=== PATIENT | male | born 1955 | race Caucasian/White ===

== ENCOUNTER 2020-01-31 09:18 | Observation (INO) ==
--- NOTE | 2020-01-05 12:55 | PAT Medication Instructions ---
Medication Instructions Date of Service January 05, 2020 Home Medications aspirin Aspirin Low Dose 81 mg PO QPM coenzyme Q10 [CoQ-10] 100 mg PO QAM ergocalciferol (vitamin D2) Vitamin D2 1,250 mcg PO WK ibandronate 150 mg PO MONTHLY lansoprazole 30 mg PO QAM lisinopril 10 mg PO QPM multivitamin 1 tab PO QAM pravastatin 40 mg PO HS sildenafil 100 mg PO DAILY PRN Continue as directed ibandronate 150 mg PO MONTHLY STOP taking 2 weeks before surgery (or as soon as possible if surgery is within 2 weeks) coenzyme Q10 [CoQ-10] 100 mg PO QAM DO NOT take the morning of surgery ergocalciferol (vitamin D2) Vitamin D2 1,250 mcg PO WK multivitamin 1 tab PO QAM sildenafil 100 mg PO DAILY PRN Take morning of surgery With a small sip of water, OTHERWISE NOTHING TO EAT OR DRINK AFTER MIDNIGHT: lansoprazole 30 mg PO QAM Take evening before surgery aspirin Aspirin Low Dose 81 mg PO QPM lisinopril 10 mg PO QPM pravastatin 40 mg PO HS sildenafil 100 mg PO DAILY PRN (if needed) Other Notes If you have any questions please call us at [phone] or [phone] or [phone] or [phone]
--- NOTE | 2020-01-08 08:14 | History & Physical Report ---
Date of Service January 08, 2020 date of surgery: 01-31-20 Procedure: Right Total Knee Arthroplasty Assessment & Plan (1) Arthritis of right knee: Risks and benefits of procedure discussed in detail today, patient would like to proceed with a Right total knee replacement at [facility] as scheduled. will obtain medical clearance from Dr Angelo prior to surgery as well as obtain PATs at [facility]. Will place on ASA 81mg po bid x 1 month post op, f/u 2 weeks post op for routine post-operative care and x-ray, sooner if having any problems. will make arrangements for HHPT at the time of discharge. At this point in time, has failed conservative measures and would like to proceed with surgical intervention. The risks and benefits have been discussed including, but not limited to, risk of infection, nerve injury, stiffness, loss of motion, failure to improve, etc. Reasonable outcomes and options of treatment were discussed. An explanation of appropriate alternatives to the procedure that may be advantageous were discussed and their risks and benefits, as well as the risks and benefits of not proceeding with treatment. I offered to answer any additional inquiries concerning the treatment involved. All the patient's questions were answered. The patient is agreeable, understanding of the treatment plan and alternatives, and wishes to proceed with the treatment plan. History of Present Illness Chief Complaint: Right knee pain Primary Care Provider: Parveen Angelo MD Mr Mcintyre is a 64 year old male who complains of Right knee pain, presents for preop prior to a right total knee replacement at [facility]. He presents with pain, decreased rom and stiffness in his right knee. He states that the symptoms have been chronic non-traumatic and his symptoms are constant with intermittent worsening. Currently the patient states that the symptoms are moderate. The pain is described as aching and throbbing. He rates his current pain as 5/10. The symptoms are aggravated by daily activities. He had previous cortisone injections without relief, has tried Tylenol, IBU and Aleve without relief. Allergies Allergy/AdvReac Type Severity Reaction Status Date / Time No Known Allergies Allergy Verified 01/01/20 09:48 Home Medications Home Medications Medication Instructions Recorded Confirmed Type aspirin [Aspirin Low Dose] 81 mg PO QPM 08/15/19 01/01/20 History coenzyme Q10 [CoQ-10] 100 mg PO QAM 08/15/19 01/01/20 History ergocalciferol (vitamin D2) 1,250 mcg PO WK 08/15/19 01/01/20 History [Vitamin D2] ibandronate 150 mg PO MONTHLY 08/15/19 01/01/20 History lansoprazole 30 mg PO QAM 08/15/19 01/01/20 History lisinopril 10 mg PO QPM 08/15/19 01/01/20 History multivitamin 1 tab PO QAM 08/15/19 01/01/20 History pravastatin 40 mg PO HS 08/15/19 01/01/20 History sildenafil 100 mg PO DAILY PRN 08/15/19 01/01/20 History Past Med/Surg History Medical History GERD (gastroesophageal reflux disease) Hx of migraine with aura stress related/no recent issues Hyperlipidemia Hypertension Osteoarthritis Osteoporosis Surgical History History of repair of anterior cruciate ligament of left knee Hx of arthroscopic knee surgery LEFT Hx of colonoscopy Hx of repair of right rotator cuff Hx of tonsillectomy Family History Father Family history of esophageal cancer Social History Smoking Status: Former smoker Smoking End Date: TEEN; Second Hand Exposure: Yes (MOM SMOKED); Do You Dip or Chew Tobacco: No; Tobacco Cessation Education Requested by Patient: No Hx Alcohol Use: No Hx Substance Use: No Preferred Language: Slovak Communication Ability: Effective Metal Flow Coordinator Required: No Beliefs That Will Affect Care: None Current Living Situation: Spouse Other Information That Helps Us Care for You: No Feels Safe at Home: Yes Safety Concerns: Feels Safe At This Time Review of Systems Review of Systems: All systems reviewed & are unremarkable except as noted in HPI & below Constitutional: no fever, no chills and no sweats Respiratory: no cough and no dyspnea Cardiovascular: no chest pain, no dyspnea and no orthopnea Gastrointestinal: no abdominal pain, no nausea and no vomiting Musculoskeletal: as per Subjective / HPI Physical Exam Physical Exam: Ht: 5ft 11in Wt: 95.25kg BP: 130/82 Constitutional: WD/WN, vitals as above no acute distress Respiratory: normal respiratory effort, lungs clear to auscultation no respiratory distress, no labored breathing and does not use accessory muscles Cardiovascular: RRR, no murmur, no edema Gastrointestinal (Abdomen): normal bowel sounds, soft, nontender, no hepatosplenomegaly Musculoskeletal: Knee: + knee abnormal to inspection (Right knee- ), + effusion (+1 effusion), + limited ROM of knee (ROM 0/3/110), + knee ROM with crepitation, + joint line tenderness (medial joint line) and + Melissa's sign positive; no deformity, no skin erythema, no ecchymosis, no valgus laxity, no varus laxity, anterior drawer test negative, Kiera's sign negative and pivot shift test negative Results & Data Results & Data ([facility]) Diagnostic Findings right knee xray from 07/31/19 showing complete loss joint space medial compartment with overall varus alignment, there is also narrowing of the lateral compartment and patellofemoral joint. there is osteophyte formation, subchondral sclerosis noted, no loose bodies, no acute bony pathology. overall impression tricompartmental degenerative changes to the right knee.
--- NOTE | 2020-01-08 12:36 | Anesthesiology Consultation ---
Date of Service January 08, 2020 Assessment & Plan (1) Encounter for pre-operative examination: *Per PAT assessment on 01/07: Travel screen- visits son's home in [facility] on the weekends. Uses PPE in public. Advised patient to avoid travel prio r to surgery- patient voiced understanding. No known COVID-19 positive contacts. No current COVID-19 related symptoms. Surgeon arranging preop COVID testing. Awaiting results. Chart Review Chart Review: Acceptable Risk for Surgery (pending surgeon-ordered PCP clearance on 01/16 (Dr. Parveen Angelo)) and Patient seen in Pre Admission Testing Teaching & Discussion Pre-Anesthesia Teaching/Discussion Notes: Instructed NPO after midnight before surgery,except medications with 15 cc of water. Medication instructions provided according to the PAT guidelines. History Surgery Operation Date: 01/31/20 07:00 Proposed Procedures p Right Total Knee Arthroplasty - Olivier Louis DO Height/Weight Height: 5 ft 11 in Weight: 98.9 kg Allergies Allergy/AdvReac Type Severity Reaction Status Date / Time No Known Allergies Allergy Verified 01/01/20 09:48 Medications Home Medications Medication Instructions Recorded Confirmed Last Taken aspirin [Aspirin Low Dose] 81 mg PO QPM 08/15/19 01/01/20 Unknown coenzyme Q10 [CoQ-10] 100 mg PO QAM 08/15/19 01/01/20 Unknown ergocalciferol (vitamin D2) 1,250 mcg PO WK 08/15/19 01/01/20 Unknown [Vitamin D2] ibandronate 150 mg PO MONTHLY 08/15/19 01/01/20 Unknown lansoprazole 30 mg PO QAM 08/15/19 01/01/20 Unknown lisinopril 10 mg PO QPM 08/15/19 01/01/20 Unknown multivitamin 1 tab PO QAM 08/15/19 01/01/20 Unknown pravastatin 40 mg PO HS 08/15/19 01/01/20 Unknown sildenafil 100 mg PO DAILY PRN 08/15/19 01/01/20 Unknown Past Medical History Medical History GERD (gastroesophageal reflux disease) controlled Hx of migraine with aura stress related/no recent issues Hyperlipidemia Hypertension Osteoarthritis Osteoporosis Exercise / Class Metabolic Activity II 4-5 Yardwork/Stairs/Walk up hill (one flight of stairs (no chest pain, no sob)) Past Family History Family History Father Family history of esophageal cancer Past Surgical History Surgical History History of repair of anterior cruciate ligament of left knee Hx of arthroscopic knee surgery LEFT Hx of colonoscopy Hx of repair of right rotator cuff Hx of tonsillectomy Past Anesthesia History No Hx of Anesthesia Complications and No Family Hx of Anesthesia Complications History of PONV No Hx of PONV and No Hx of Motion Sickness Social History Smoking Status: Former smoker Do You Dip or Chew Tobacco: No Smoking End Date: QUIT TEEN Hx Alcohol Use: No alcohol intake frequency: holidays/special occasions only Hx Substance Use: No substance use type: does not use Review of Systems Controlled reflux. Patient denies chest pain, shortness of breath, dyspnea on exertion, cough, wheezing, palpitations. Physical Exam Vital Signs VITALS BP 123/72 P 69 TEM 97.9P SP02 95%RA RESP 18 PHYSICAL Full neck and c-spine range of motion. Full TMJ range of motion. TMD 3 finger breaths Mallampati Score 3 Dentition: intact, + crowns (molars), + implant (upper front right side), right upper molar- hx of abscess s/p drainage/treatment, dentist will re-evaluate prior to orthopedic surgery to determine if anything further needed. Patient aware that if further dental work is needed for patient to contact surgeon to make them aware Lungs: clear throughout to auscultation Cardiac: regular rate and rhythm, no murmurs noted Spine: normal Carotid arteries: negative bruit Extremities: no edema Testing Laboratory Results 01/08/20 13:17 01/08/20 13:17 PT 10.3 Seconds (9.0-12.0) 01/08/20 13:17 INR 1.0 (0.9-1.1) 01/08/20 13:17 APTT 26.1 Seconds (21.0-31.0) 01/08/20 13:17 Hemoglobin A1c 5.9 % (4.5-5.6) H 01/08/20 13:17 Urine Color Yellow 01/08/20 13:17 Urine Appearance Clear (Clear) 01/08/20 13:17 Urine pH 5.0 (4.5-7.5) 01/08/20 13:17 Ur Specific [place] 1.027 (1.000-1.030) 01/08/20 13:17 Urine Protein Negative (Negative) 01/08/20 13:17 Urine Glucose (UA) Negative (Negative) 01/08/20 13:17 Urine Ketones Negative (Negative) 01/08/20 13:17 Urine Nitrite Negative (Negative) 01/08/20 13:17 Ur Leukocyte Esterase Negative (Negative) 01/08/20 13:17 Blood Type A Positive 01/08/20 13:17 Antibody Screen NEGATIVE 01/08/20 13:17 Electrocardiogram Date: 01/08/20 Findings: + NSR @ (61) Chest X-Ray Date: 01/08/20 Findings: + NAD
--- NOTE | 2020-01-08 14:02 | XRay Report ---
XR chest Pre-admission PA/Lat CLINICAL HISTORY: pat preoperative evaluation COMPARISON STUDY: No previous studies for comparison. FINDINGS: The bones soft tissues and hemidiaphragms are normal. The cardiomediastinal silhouette is n ormal. The lungs are clear. The pulmonary vasculature is normal. IMPRESSION: Negative chest. ACT 112: Negative or not required by law. The above report was generated using voice recognition software. It may contain grammatical, syntax or spelling errors. Electronically signed by: Milton Stein M.D. 01/08/2020 2:00 PM
[2020-01-08 14:40] LABS: Basophils # (auto) 0.03 K/uL (0-0.2); Basophils % (auto) 0.5 %; Eosinophils # (auto) 0.32 K/uL (0-0.5); Hematocrit (blood only) 42.3 % (42-52); Hemoglobin 14.2 g/dL (14.0-18.0); Immature Granulocytes # (auto) 0.01 K/uL (0.00-0.02); Immature Granulocytes % (auto) 0.2 %; Lymphocytes # (auto) 2.46 K/uL (1.2-3.4); Lymphocytes % (auto) 38.6 %; Mean Corpuscular Hgb Conc 33.6 g/dL (32-36); Mean Corpuscular Volume 92.4 fL (80-100); Mean Platelet Volume 10.2 fL (7.4-10.4); Monocytes # (auto) 0.37 K/uL (0.11-0.59); Monocytes % (auto) 5.8 %; Neutrophils # (auto) 3.18 K/uL (1.4-6.5); Neutrophils % (auto) 49.9 %; Platelet Count 219 K/uL (130-400); RDW Coefficient of Variation 13.7 % (11.5-14.5); RDW Standard Deviation 46.2 fL (36.4-46.3); Red Blood Count 4.58 M/uL (4.7-6.1); White Blood Count 6.37 K/uL (4.8-10.8)
[2020-01-08 14:45] LABS: Appearance Urine Clear (Clear); Bilirubin Urine Negative (Negative); Blood Urine Negative (Negative); Color Urine Yellow; Glucose Urine UA Negative (Negative); Ketones Urine Negative (Negative); Leukocyte Esterase Urine Negative (Negative); Nitrite Urine Negative (Negative); Protein Urine Negative (Negative); Specific Gravity Urine 1.027 (1.000-1.030); Urobilinogen Urine Negative (Negative)
[2020-01-08 14:50] LABS: Partial Thromboplastin Ratio 0.9; Partial Thromboplastin Time 26.1 Seconds (21.0-31.0); Prothrombin Time 10.3 Seconds (9.0-12.0)
[2020-01-08 15:04] LABS: Albumin Level 3.7 gm/dl (3.4-5.0); BUN Creatinine Ratio 16.7 (10-20); Calcium 9.1 mg/dl (8.5-10.1); Creatinine Clr Calc Pharmacy 77.5 ml/min; Est GFR (African American) 76.4; Potassium 3.7 mmol/L (3.5-5.1)
[2020-01-09 05:39] LABS: Estimated Average Glucose 123 mg/dl; Hemoglobin A1C 5.9 % (4.5-5.6)
--- NOTE | 2020-01-09 06:02 | Electrocardiogram Report ---
Test Reason : Blood Pressure : / mmHG Vent. Rate : 061 BPM Atrial Rate : 061 BPM P-R Int : 138 ms QRS Dur : 092 ms QT Int : 398 ms P-R-T Axes : 053 060 041 degrees QTc Int : 400 ms Normal sinus rhythm Normal ECG No previous ECGs available Confirmed by Milton Webb ([id number]) on 01/09/2020 6:02:20 AM Referred By: Olivier Louis Confirmed By:Milton Webb
[~2020-01-31 09:18] MED LIST: ACETAMINOPHEN 500 MG TAB PO SCH; CEFAZOLIN 2000MG 2,000 MG/15 ML SYR IV SCH; CeleBREX 200 MG CAP PO SCH; FAMOTIDINE 20 MG TAB PO SCH; GABAPENTIN 600 MG DOSE PO SCH; LR 500ML BOLUS, THEN 15ML/HR IV SCH; METOCLOPRAMIDE HCL 10 MG TABLET PO SCH; ROPIVACAINE 0.5% HCL/PF 150 MG, BUPIVACAINE 0.5% MPF 30 ML, EPINEPHrine 30MG/30ML (OR U... INSTIL SCH; TRANEXAMIC ACID 1,000 MG **IV Intra-op IV SCH; TRANEXAMIC ACID 1,000 MG **IV Pre-op IV SCH; dexAMETHasone 4 MG TAB PO SCH
[2020-01-31] MEDS ORDERED: BUPIVACAINE 0.25% 30 ML VIAL ONE (09:24)
[2020-01-31] MEDS ORDERED: BUPIVACAINE 0.5 % 5 MG/1 ML PF 10ML VIAL ONE (09:24)
[2020-01-31] MEDS ORDERED: LIDOCAINE HCL 2% 2 ML VIAL/AMP(20MG/ML) INFIL ONE (09:30)
[2020-01-31] MEDS ORDERED: ePHEDrine sulfate 50 MG/ML SYR ONE (09:30)
[2020-01-31] MEDS ORDERED: PROPOFOL IV EMULSION 10 MG/ML 20 ML VIAL IV ONE ×2 (09:30→11:47)
[2020-01-31] MEDS ORDERED: PHENYLEPHRINE 100MCG/ML 5ML SYR ONE (09:30)
[2020-01-31] MEDS ORDERED: MIDAZOLAM HCL 1 MG/ML 2ML VIAL ONE (09:31)
[2020-01-31] MEDS ORDERED: fentaNYL citrate 100 MCG/2 ML VIAL ONE (09:31)
--- NOTE | 2020-01-31 10:35 | History & Physical Bridge Note ---
Date of Service January 31, 2020 History & Physical Bridge Note I have examined the patient, reviewed the History & Physical and in the interval since the performance of the History & Physical I have noted the following changes of clinical significance: no changes noted
[2020-01-31] MEDS ORDERED: ePHEDrine sulfate 50 MG/ML AMP IV PRN (10:54)
[2020-01-31] MEDS ORDERED: ONDANSETRON INJ 2 MG/ML 2 ML VIAL IV PRN ×2 (10:54→14:42)
[2020-01-31] MEDS ORDERED: ATROPINE SULFATE 0.1 MG/ML 10ML SYR IV PRN (10:54)
[2020-01-31] MEDS ORDERED: fentaNYL citrate 100 MCG/2 ML VIAL IV PRN (10:54)
[2020-01-31] MEDS ORDERED: BACITRACIN INJ 50,000 UNIT VIAL ONE (11:02)
[2020-01-31] MEDS ORDERED: ORTHO JOINT ANESTHETIC ONE (11:02)
--- NOTE | 2020-01-31 12:41 | Operative Report ---
Post Operative Report Pre & Post Diagnosis Operation Date: 01/31/20 12:05 Pre-Op Diagnosis: Right Knee Osteoarthritis Post-Op Diagnosis: Right Knee Osteoarthritis I identified the patient and participated in the time-out.: Yes Procedure Operation Date: 01/31/20 12:05 Actual Procedures p Right Total Knee Arthroplasty(Right) utilizing [employer] [place] [facility] patient matched total knee arthroplasty size 7 femur 6 tibia 15 polyethylene 35 oval patella- Olivier Louis DO Surgeon Olivier Louis DO Manager Part GEORGE Powell Estimated Blood Loss 5 Findings Consistent with Post-Op Diagnosis Patient presents with severe end-stage DJD varus alignment subchondral cystic changes marginal osteophytes moderate to large effusion eburnated [id number] nonresponsive to conservative management Specimens Bone and cartilage Drains Medium bore Hemovac Anesthesia Type MAC Spinal Regional Complications none Disposition Accompanied Patient To Recovery: No Disposition: Recovery Room Indications Patient presents for right total knee arthroplasty after failed attempted conservative management clinic physical therapy anti-inflammatories relative rest activity modification corticosteroid injection Visco supplementation the above intraoperative findings are noted time surgery. Description of Procedure After proper prepping and draping of the Right lower extremity anterior midline incision was made over the region of the extensor extensor mechanism after meticulous hemostasis was obtained and maintained in subcutaneous tissues a medial parapatellar incision was made The patella was subluxed lateralward the medial lateral gutter were cleaned from any hypertrophic synovitis and scar ti ssue of the distal femoral block was placed and the distal femoral osteotomy cut was made subsequently the chamfers anterior and posterior osteotomy cuts were made utilizing the 4-in-1 block the tibia was subsequently subluxed anteriorward medial and ateral meniscal remnants were excised in their entirety remnants of the anterior and posterior cruciate ligaments were excised in their entirety excellent exposure of the proximal tibia was obtained the tibial osteotomy guide was placed on the proximal tibial osteotomy cut was made once again the knee was irrigated with copious amounts of sterile saline solution the patella was subsequently everted lateralward thickened scar tissue around the patella was removed the patella was subsequently cut utilizing a freehand technique and was drilled prepared for final preparation and placement of patella socially flexion-extension gaps were checked and the equal and symmetric trials were placed to the appropriate femoral and tibial trials with poly-spacer being placed for equal flexion and extension gaps and full range of motion including extension to 0 and flexion to 140 the trial components after having been taken to recovery range of motion was subsequently removed meticulous hemostasis was obtained and maintained subsequently a knee block injection of joint cocktail including ropivacaine 0.5% 150 mg. Bupivacaine 0.5% epinephrine 1-200,030 mL's toradol 30 mg dexamethasone 4 mg ketamine 10 mg clonidine 100 micrograms normal saline solution 30 mg was infiltrated into the soft tissues of the posterior knee medial lateral gutters and periosteal synovium special attention was paid to protect neurovascular structures at all times subsequently trial components having been removed the knee was irrigated with sterile saline solution. debris was removed the proximal tibia was subsequently prepared and was made ready for the placement of the tibial component tibial component was also cemented and tamped into position the femoral component was subsequently placed and cemented in the position the patellar component was subsequently cemented in position because hemostasis once again obtained and maintained wound having been thoroughly irrigated with debridement and debridement lavage was performed as well as a medial parapatellar incision closed with #1 Vicryl in interrupted fashion subcutaneous was closed with #2 Vicryl skin was closed with skin clips. PA-C was necessary for prepping and drapping as well as wound closure of deep fascia Sub cutaneous tissue and skin and was necessary for the case. A sterile compressive dressing was placed patient was taken to recovery in stable condition of report dictated by Heriberto I attest to the content of the Intraoperative Record and any orders documented therein. Any exceptions are noted below. I attest to the content of the Intraoperative Record and any orders documented therein. Any exceptions are noted below.
--- NOTE | 2020-01-31 13:59 | XRay Report ---
XR knee RT 1 or 2V routine CLINICAL HISTORY: Surgical Post Op COMPARISON: None. DISCUSSION: There are postsurgical changes of a total right knee arthroplasty and patellar resurfacin g. There is an overlying surgical drain. There is gas present within the soft tissues consistent with recent surgery. The femoral and tibial components appear well seated. IMPRESSION: Postsurgical changes of a total right knee arthroplasty. ACT 112: Negative or not required by law. Electronically signed by: Raul Cabezas M.D. 01/31/2020 1:58 PM
[2020-01-31] MEDS ORDERED: MAGNESIUM HYDROXIDE SUSP 30 ML UDC PO PRN (14:42)
[2020-01-31] MEDS ORDERED: bisacodyL 10 MG SUPP PR PRN (14:42)
[2020-01-31] MEDS ORDERED: HYDROmorphone INJ 1 MG/ML SYRINGE IV PRN (14:42)
[2020-01-31] MEDS ORDERED: METOCLOPRAMIDE HCL INJ 5 MG/ML 2 ML VIAL IV PRN (14:42)
[2020-01-31] MEDS ORDERED: NALOXONE HCL 0.4 MG/1 ML VIAL/CARP IV PRN (14:42)
[2020-01-31] MEDS: SODIUM CHLORIDE 0.9% 1000ML 1,000 ML IV SCH (14:49)
[2020-01-31] MEDS: KETOROLAC 30 MG/ML VIAL IV SCH ×2 (14:58→21:44)
--- NOTE | 2020-01-31 15:13 | Anesthesiology Progress Note ---
Date of Service January 31, 2020 Anesthesia Post Procedure Vital Signs Vital Signs: Temp Pulse Pulse Pulse Resp BP BP 01/31/20 14:59 66 14 117/75 01/31/20 14:25 64 18 109/69 01/31/20 14:10 36.6 C 60 14 116/69 01/31/20 14:00 68 22 111/66 01/31/20 13:50 70 23 111/69 01/31/20 13:40 71 17 111/62 01/31/20 13:30 71 17 106/66 01/31/20 13:23 36.2 C L 72 18 111/67 01/31/20 10:28 36.9 C 65 20 146/83 H 01/31/20 09:48 36.8 C 65 20 134/89 Pulse Ox 01/31/20 14:59 92 01/31/20 14:25 97 01/31/20 14:10 96 01/31/20 14:00 98 01/31/20 13:50 98 01/31/20 13:40 97 01/31/20 13:30 96 01/31/20 13:23 92 01/31/20 10:28 96 01/31/20 09:48 97 Pain Intensity Right Knee: Pain Intensity: 2 Transfer of Care Handoff Completed per policy Notes Mental Status: alert / awake / arousable and participated in evaluation Patient Amnestic to Procedure: Yes Nausea / Vomiting: adequately controlled Pain: adequately controlled Airway Patency, RR, SpO2: stable & adequate BP & HR: stable & adequate Hydration State: stable & adequate Neuraxial Anesthesia: was administered and sensory block is resolving Anesthetic Complications: no major complications apparent and Pt Satisfied with anesthetic care
[2020-01-31] MEDS: ACETAMINOPHEN 500 MG TAB PO SCH ×2 (15:40→21:45)
[2020-01-31] MEDS: OXYCODONE HCL IR 5 MG TAB (IMMEDIATE RELEASE) PO PRN (17:24)
[2020-01-31] MEDS: CEFAZOLIN 2000MG 2,000 MG/15 ML SYR IV SCH (19:10)
[2020-01-31] MEDS ORDERED: lisinopriL 10 MG TAB PO SCH (21:00)
[2020-01-31] MEDS ORDERED: SENNA 8.6 MG TAB PO SCH (21:00)
[2020-01-31] MEDS ORDERED: PRAVASTATIN SOD 40 MG TAB PO SCH (21:00)
[2020-01-31] MEDS: ASPIRIN 81 MG ECTAB PO SCH (21:44)
[2020-01-31] MEDS: DOCUSATE SODIUM 100 MG CAP PO SCH (21:44)
[2020-02-01] MEDS: SODIUM CHLORIDE 0.9% 1000ML 1,000 ML IV SCH (01:12)
[2020-02-01] MEDS: OXYCODONE HCL IR 5 MG TAB (IMMEDIATE RELEASE) PO PRN ×2 (02:04→11:24)
[2020-02-01] MEDS: KETOROLAC 30 MG/ML VIAL IV SCH ×2 (03:17→08:25)
[2020-02-01] MEDS: CEFAZOLIN 2000MG 2,000 MG/15 ML SYR IV SCH (03:18)
[2020-02-01] MEDS: ACETAMINOPHEN 500 MG TAB PO SCH ×2 (06:07→13:59)
[2020-02-01 06:37] LABS: Hematocrit (blood only) 34.9 % (42-52); Hemoglobin 11.3 g/dL (14.0-18.0); Mean Corpuscular Hemoglobin 30.1 pg (25-34); Mean Corpuscular Hgb Conc 32.4 g/dL (32-36); Mean Corpuscular Volume 93.1 fL (80-100); Mean Platelet Volume 9.7 fL (7.4-10.4); Platelet Count 220 K/uL (130-400); RDW Coefficient of Variation 13.5 % (11.5-14.5); RDW Standard Deviation 46.4 fL (36.4-46.3); Red Blood Count 3.75 M/uL (4.7-6.1); White Blood Count 11.79 K/uL (4.8-10.8)
[2020-02-01 07:20] LABS: BUN Creatinine Ratio 19.2 (10-20); Calcium 8.1 mg/dl (8.5-10.1); Creatinine Clr Calc Pharmacy 91.6 ml/min; Est GFR (African American) 94.7; Est GFR (Non-African American) 81.7; Potassium 4.4 mmol/L (3.5-5.1)
[2020-02-01] MEDS: ASPIRIN 81 MG ECTAB PO SCH (08:24)
[2020-02-01] MEDS: DOCUSATE SODIUM 100 MG CAP PO SCH (08:24)
[2020-02-01] MEDS ORDERED: MULTIVITAMIN TAB PO SCH (09:00)
--- NOTE | 2020-02-01 09:00 | Orthopedic Progress Note ---
Date of Service February 01, 2020 Assessment & Plan (1) Arthritis of right knee: Postop day 1 status post right total knee arthroplasty PT/OT protocols. Weightbearing as tolerated. DVT prophylaxis with aspirin p.o. twice daily, SCDs New current pain regimen. DC planning-patient planning for home health services upon discharge. Depending on Hemovac drainage, he may have to go home with his drain if discharged today. Admission and Anticipated Discharge Date Admission Date: January 31, 2020 Subjective Postop day 1 Patient sitting at the bedside eating his breakfast. No complaints this morning. Feels well. Pain controlled. Denies SOB, CP, LH. Physical Exam Physical Exam: Dressings are clean, dry, and intact. Calves are soft nontender. Neurovascular is intact. Toes are mobile. He has good dorsiflexion and plantarflexion of the right foot. Hemovac drainage was 275 mL's from the previous shift. Results & Data ([facility]) Vital Signs (Past 12 Hours) Vital Signs Temp Pulse Resp BP BP Pulse Ox 02/01/20 07:21 36.5 C 62 16 110/66 94 02/01/20 03:15 36.7 C 67 18 110/64 94 01/31/20 23:10 36.3 C L 66 18 114/69 93 01/31/20 21:52 36.5 C 68 130/76 Laboratory Results Laboratory Results WBC 11.79 K/uL (4.8-10.8) H 02/01/20 06:16 RBC 3.75 M/uL (4.7-6.1) L 02/01/20 06:16 Hgb 11.3 g/dL (14.0-18.0) L 02/01/20 06:16 Hct 34.9 % (42-52) L 02/01/20 06:16 MCV 93.1 fL (80-100) 02/01/20 06:16 MCH 30.1 pg (25-34) 02/01/20 06:16 MCHC 32.4 g/dL (32-36) 02/01/20 06:16 RDW Std Deviation 46.4 fL (36.4-46.3) H 02/01/20 06:16 RDW Coeff of Jasmine 13.5 % (11.5-14.5) 02/01/20 06:16 Plt Count 220 K/uL (130-400) 02/01/20 06:16 MPV 9.7 fL (7.4-10.4) 02/01/20 06:16 Immature Gran % (Auto) 0.2 % 01/08/20 13:17 Neut % (Auto) 49.9 % 01/08/20 13:17 Lymph % (Auto) 38.6 % 01/08/20 13:17 [place] % (Auto) 5.8 % 01/08/20 13:17 Eos % (Auto) 5.0 % 01/08/20 13:17 Baso % (Auto) 0.5 % 01/08/20 13:17 Neut # (Auto) 3.18 K/uL (1.4-6.5) 01/08/20 13:17 Lymph # (Auto) 2.46 K/uL (1.2-3.4) 01/08/20 13:17 [place] # (Auto) 0.37 K/uL (0.11-0.59) 01/08/20 13:17 Eos # (Auto) 0.32 K/uL (0-0.5) 01/08/20 13:17 Baso # (Auto) 0.03 K/uL (0-0.2) 01/08/20 13:17 Immature Gran # (Auto) 0.01 K/uL (0.00-0.02) 01/08/20 13:17 PT 10.3 Seconds (9.0-12.0) 01/08/20 13:17 INR 1.0 (0.9-1.1) 01/08/20 13:17 APTT 26.1 Seconds (21.0-31.0) 01/08/20 13:17 PTT Ratio 0.9 01/08/20 13:17 Sodium 139 mmol/L (136-145) 02/01/20 06:16 Potassium 4.4 mmol/L (3.5-5.1) 02/01/20 06:16 Chloride 111 mmol/L (98-107) H 02/01/20 06:16 Carbon Dioxide 20 mmol/L (21-32) L 02/01/20 06:16 Anion Gap 8.0 (3-11) 02/01/20 06:16 BUN 19 mg/dl (7-18) H 02/01/20 06:16 Creatinine 0.98 mg/dl (0.6-1.4) 02/01/20 06:16 Est Cr Clr Drug Dosing 91.6 ml/min 02/01/20 06:16 Est GFR ( Amer) 94.7 02/01/20 06:16 Est GFR (Non-Af Amer) 81.7 02/01/20 06:16 BUN/Creatinine Ratio 19.2 (10-20) 02/01/20 06:16 Glucose 115 mg/dl (70-99) H 02/01/20 06:16 Estimat Average Glucose 123 mg/dl 01/08/20 13:17 Hemoglobin A1c 5.9 % (4.5-5.6) H 01/08/20 13:17 Calcium 8.1 mg/dl (8.5-10.1) L 02/01/20 06:16 Albumin 3.7 gm/dl (3.4-5.0) 01/08/20 13:17 Urine Color Yellow 01/08/20 13:17 Urine Appearance Clear (Clear) 01/08/20 13:17 Urine pH 5.0 (4.5-7.5) 01/08/20 13:17 Ur Specific [place] 1.027 (1.000-1.030) 01/08/20 13:17 Urine Protein Negative (Negative) 01/08/20 13:17 Urine Glucose (UA) Negative (Negative) 01/08/20 13:17 Urine Ketones Negative (Negative) 01/08/20 13:17 Urine Blood Negative (Negative) 01/08/20 13:17 Urine Nitrite Negative (Negative) 01/08/20 13:17 Urine Bilirubin Negative (Negative) 01/08/20 13:17 Urine Urobilinogen Negative (Negative) 01/08/20 13:17 Ur Leukocyte Esterase Negative (Negative) 01/08/20 13:17 Hepatitis C Ab Screen Neg (Neg) 02/01/20 06:16 Blood Type A Positive 01/08/20 13:17 Antibody Screen NEGATIVE 01/08/20 13:17
[2020-02-01] MEDS ORDERED: CeleBREX 200 MG CAP PO SCH (21:00)
--- NOTE | 2020-02-02 12:50 | Discharge Summary ---
Date of Service date of admission: January 31, 2020 date of discharge: 02-01-20 Admission HPI Per Admitting Provider Mr Mcintyre is a 64 year old male who complains of Right knee pain, presents for preop prior to a right total knee replacement at [facility]. He presents with pain, decreased rom and stiffness in his right knee. He states that the symptoms have been chronic non-traumatic and his symptoms are constant with intermittent worsening. Currently the patient states that the symptoms are moderate. The pain is described as aching and throbbing. He rates his current pain as 5/10. The symptoms are aggravated by daily activities. He had previous cortisone injections without relief, has tried Tylenol, IBU and Aleve without relief. Principal Diagnosis right knee arthritis Discharge Exam Vital Signs Temp 36.4 C L 02/01/20 13:32 Pulse 64 02/01/20 13:32 Resp 16 02/01/20 13:32 BP 110/64 02/01/20 13:32 Pulse Ox 95 02/01/20 13:32 Intake & Output 02/01/20 02/02/20 02/02/20 18:59 06:59 18:59 Output Total 1175 / 1175 Balance -1175 / -1175 Weight 97 kg Output: Urine 950 / 950 Drain Output 225 / 225 Right Knee Hemovac 225 / 225 Constitutional WD/WN, vitals as above no acute distress Musculoskeletal right knee: NVDI, calf SNT, negative lisa sign. DP palpable, able to wiggle toes/ankle movement without difficulty. dressing clean dry and intact. expected post-operative bruising noted. Discharge Data Allergies Allergy/AdvReac Type Severity Reaction Status Date / Time No Known Allergies Allergy Verified 01/31/20 09:41 Consultations 01/31/20 14:42 Consult Case Management - Discharge Planning Routine Procedures Performed Operation Date: 01/31/20 12:05 Actual Procedures p Right Total Knee Arthroplasty(Right) - Olivier Louis DO Ordered Studies 01/31/20 05:00 US - OR guided needle placemen Routine Hospital Course (1) Arthritis of right knee: Postop day 1 status post right total knee arthroplasty PT/OT protocols. Weightbearing as tolerated. DVT prophylaxis with aspirin p.o. twice daily, SCDs New current pain regimen. DC planning- patient discharged with HHPT Laboratory Results WBC 11.79 K/uL (4.8-10.8) H 02/01/20 06:16 RBC 3.75 M/uL (4.7-6.1) L 02/01/20 06:16 Hgb 11.3 g/dL (14.0-18.0) L 02/01/20 06:16 Hct 34.9 % (42-52) L 02/01/20 06:16 MCV 93.1 fL (80-100) 02/01/20 06:16 MCH 30.1 pg (25-34) 02/01/20 06:16 MCHC 32.4 g/dL (32-36) 02/01/20 06:16 RDW Std Deviation 46.4 fL (36.4-46.3) H 02/01/20 06:16 RDW Coeff of Jasmine 13.5 % (11.5-14.5) 02/01/20 06:16 Plt Count 220 K/uL (130-400) 02/01/20 06:16 MPV 9.7 fL (7.4-10.4) 02/01/20 06:16 Immature Gran % (Auto) 0.2 % 01/08/20 13:17 Neut % (Auto) 49.9 % 01/08/20 13:17 Lymph % (Auto) 38.6 % 01/08/20 13:17 [place] % (Auto) 5.8 % 01/08/20 13:17 Eos % (Auto) 5.0 % 01/08/20 13:17 Baso % (Auto) 0.5 % 01/08/20 13:17 Neut # (Auto) 3.18 K/uL (1.4-6.5) 01/08/20 13:17 Lymph # (Auto) 2.46 K/uL (1.2-3.4) 01/08/20 13:17 [place] # (Auto) 0.37 K/uL (0.11-0.59) 01/08/20 13:17 Eos # (Auto) 0.32 K/uL (0-0.5) 01/08/20 13:17 Baso # (Auto) 0.03 K/uL (0-0.2) 01/08/20 13:17 Immature Gran # (Auto) 0.01 K/uL (0.00-0.02) 01/08/20 13:17 PT 10.3 Seconds (9.0-12.0) 01/08/20 13:17 INR 1.0 (0.9-1.1) 01/08/20 13:17 APTT 26.1 Seconds (21.0-31.0) 01/08/20 13:17 PTT Ratio 0.9 01/08/20 13:17 Sodium 139 mmol/L (136-145) 02/01/20 06:16 Potassium 4.4 mmol/L (3.5-5.1) 02/01/20 06:16 Chloride 111 mmol/L (98-107) H 02/01/20 06:16 Carbon Dioxide 20 mmol/L (21-32) L 02/01/20 06:16 Anion Gap 8.0 (3-11) 02/01/20 06:16 BUN 19 mg/dl (7-18) H 02/01/20 06:16 Creatinine 0.98 mg/dl (0.6-1.4) 02/01/20 06:16 Est Cr Clr Drug Dosing 91.6 ml/min 02/01/20 06:16 Est GFR ( Amer) 94.7 02/01/20 06:16 Est GFR (Non-Af Amer) 81.7 02/01/20 06:16 BUN/Creatinine Ratio 19.2 (10-20) 02/01/20 06:16 Glucose 115 mg/dl (70-99) H 02/01/20 06:16 Estimat Average Glucose 123 mg/dl 01/08/20 13:17 Hemoglobin A1c 5.9 % (4.5-5.6) H 01/08/20 13:17 Calcium 8.1 mg/dl (8.5-10.1) L 02/01/20 06:16 Albumin 3.7 gm/dl (3.4-5.0) 01/08/20 13:17 Urine Color Yellow 01/08/20 13:17 Urine Appearance Clear (Clear) 01/08/20 13:17 Urine pH 5.0 (4.5-7.5) 01/08/20 13:17 Ur Specific [place] 1.027 (1.000-1.030) 01/08/20 13:17 Urine Protein Negative (Negative) 01/08/20 13:17 Urine Glucose (UA) Negative (Negative) 01/08/20 13:17 Urine Ketones Negative (Negative) 01/08/20 13:17 Urine Blood Negative (Negative) 01/08/20 13:17 Urine Nitrite Negative (Negative) 01/08/20 13:17 Urine Bilirubin Negative (Negative) 01/08/20 13:17 Urine Urobilinogen Negative (Negative) 01/08/20 13:17 Ur Leukocyte Esterase Negative (Negative) 01/08/20 13:17 Hepatitis C Ab Screen Neg (Neg) 02/01/20 06:16 Blood Type A Positive 01/08/20 13:17 Antibody Screen NEGATIVE 01/08/20 13:17 Total Time Total Time Spent Total Time Spent (In Minutes): 20 Total Time Includes: Examination of the Patient, Discharge Planning and Medication Reconciliation Discharge Plan Discharge Items Patient Disposition: Home - Home Health Services Reason For Visit: Right Knee Osteoarthritis Discharge Diagnosis: right total knee replacement Activity: Per Instructions section Lifting: Wait until after follow-up appointment Exercise/Sports: Wait until after follow-up appointment Weightbearing: Right weightbearing Weightbearing Comment: with walker Non-emergency contact: Surgeon Call non-emergency contact if: you have any medication questions, your temperature is above 101, your wound has increased redness, your wound has increased drainage and your wound pain has increased Follow-up/Referrals: Parveen Angelo MD [Primary Care Provider] - Diet: Regular Addtl Attending Provider Instructions: ACTIVITY RECOMMENDATIONS: SELF CARE INSTRUCTIONS AFTER TOTAL KNEE REPLACEMENT A. You may need to continue a physical therapy program after discharge from the hospital. There are several options available to you. Your doctor will assist you in selecting the best one for you. 1. An out-patient facility 2 to 3 times a week for therapy or home therapy. 2. Continue working on all exercises taught to you in the hospital. Your goals should be to increase bending of your knee to 90 degrees and beyond and to fully straighten your knee. B. You may progress at your own pace from walking with a walker or crutches to a cane; then to no assistive devices. C. Make walking a part of your daily routine. Be up as much as comfortable with rest periods throughout the day. Rest with leg elevation is very important. Use the ice wrap frequently for the first 3-4 weeks. D. There are no restrictions on activities. You may ride in a car, shop, participate in wallpaper hanger and all social activities. E. Wear the long elastic stockings (HUGO hose) 20 hours a day for 2 weeks after surgery. They can be removed several times a day for laundering and for a bath. F. You may shower, no tub baths until cleared by your doctor. SPECIAL CARE INSTRUCTIONS: VERY IMPORTANT TO READ AND REVIEW A. There are a few signs you need to watch for after you are home. Call [facility] if you notice any of the followin. Increased severe knee pain. Some pain is expected especially when you exercise. 2. Increased swelling in your leg or knee; pain or swelling of the calf muscle in either lower leg. 3. Any fluid drainage from the incision. 4. Shortness of breath or chest pain. B. Please call [facility] at if you have any concerns or questions about your operation or recovery. The doctor or his nurse will return your call promptly. C. You must take antibiotics before dental work, bladder, bowel or other surgery. Your doctor will provide you with a permanent care to carry describing this precaution. IMPORTANT: * REMEMBER TO TAKE ASPIRIN, 81 MG, TWICE DAILY FOR 4 WEEKS UNLESS OTHERWISE DIRECTED. THIS IS YOUR BLOOD THINNER. * HIGH RISK PATIENTS MAY BE PRESCRIBED A STRONGER BLOOD THINNER. THIS WILL BE PROVIDED AT DISCHARGE. * CALL IF INCREASED PAIN, REDNESS, DRAINAGE OR FEVER GREATER THAT 101. * WEAR HUGO HOSE 20 HOURS PER DAY FOR 2 WEEKS. * DERMABOND Prineo- This is a mesh tape dressing that is covered with glue. It should remain in place until the incision is properly healed, usually 10-14 days. This dressing is designed to naturally slough off. You may trim the excess mesh tape as it peels off. Incision may be briefly wet in a shower. Dry immediately by blotting with a clean, dry towel. Do not bath or swim until instructed by your doctor. Do not scratch, rub, or pick at the dressing. Do not apply any topical ointments or lotions until dressing is completely removed and/or instructed by your doctor. There may be a small piece of suture material at one end of your incision. Do not pull or trim this. If it is bothersome or catching on clothing, you may cover it with a band-aid. IF INCISION IS LEAKING THROUGH DRESSING, CALL THE OFFICE . FOLLOW UP VISIT: If appointment is not already scheduled: Please call [facility] to make a follow-up appointment for 2 weeks after your surgery at . Stand-Alone Forms: My [facility] [employer], Opioid Pain Management, Smoking Cessation Medications and DC Order Prescriptions: New aspirin 81 mg Tablet,Delayed Release (Dr/Ec) 81 mg PO BID 30 Days Qty: 60 RF: 0 acetaminophen 500 mg Tablet 1,000 mg PO Q8 14 Days Qty: 84 RF: 0 cefadroxil 500 mg capsule 500 mg PO BID Qty: 28 RF: 1 oxycodone 5 mg Tablet 5 mg PO Q4H MDD 6 PRN (Reason: pain) Qty: 30 RF: 0 Continued multivitamin Tablet 1 tab PO QAM RF: 0 pravastatin 40 mg Tablet 40 mg PO HS RF: 0 sildenafil [Viagra] 100 mg Tablet 100 mg PO DAILY PRN (Reason: DIRECTED) RF: 0 lisinopril 10 mg Tablet 10 mg PO QPM RF: 0 lansoprazole [Prevacid] 30 mg Capsule,Delayed Release(Dr/Ec) 30 mg PO QAM RF: 0 ergocalciferol (vitamin D2) [Vitamin D2] 1,250 mcg (50,000 unit) Capsule 1,250 mcg PO WK RF: 0 coenzyme Q10 [CoQ-10] 100 mg Capsule 100 mg PO QAM RF: 0 ibandronate [Boniva] 150 mg Tablet 150 mg PO MONTHLY RF: 0 Discontinued aspirin [Aspirin Low Dose] 81 mg Tablet,Delayed Release (Dr/Ec) 81 mg PO QPM RF: 0 Discharge Orders: Discharge Order (Routine); Ordered 02/01/20 Ordered By: Wilfredo Rojo/Other Patient Handouts: Understanding Deep Vein Thrombosis, A1C Admission Data Admit Date/Time: 01/31/20 13:36 Attending Provider: Olivier Louis Admit Provider: Olivier Louis Primary Care Provider: Parveen Angelo. Other Interventions: Discharge Summary Assessment (RN) Last Done: 02/01/20 13:32
[2020-02-05] MEDS ORDERED: ERGOCALCIFEROL 50,000 UNITS CAP PO SCH (09:00)
== END 2020-02-01 14:28 | disposition home health service (06) ==
LOC: ASU 09:18 → 3E 09:18

== ENCOUNTER 2021-02-12 06:07 | Observation (INO) ==
--- NOTE | 2021-01-10 08:55 | PAT Medication Instructions ---
Medication Instructions Date of Service January 10, 2021 Home Medications coenzyme Q10 100 mg capsule (CoQ-10) 100 mg PO QAM ergocalciferol (vitamin D2) 1,250 mcg (50,000 unit) capsule (Vitamin D2) 1,250 mcg PO WK ibandronate 150 mg tablet (Boniva) 150 mg PO MONTHLY lansoprazole 30 mg capsule,delayed release (Prevacid) 30 mg PO QAM multivitamin 1 tab PO QAM pravastatin 40 mg tablet 40 mg PO HS sildenafil 100 mg tablet (Viagra) 100 mg PO DAILY PRN acetaminophen 650 mg tablet 1,300 mg PO HS PRN aspirin 81 mg tablet 81 mg PO HS losartan 25 mg tablet 25 mg PO QPM mv-min-vit C 1,000 mg-elderberry 50 mg-herb 35.5mg effervescent tablet (Airborne Elderberry) 1 ea PO DAILY Continue as directed ibandronate 150 mg tablet (Boniva) 150 mg PO MONTHLY STOP taking 2 weeks before surgery (or as soon as possible if surgery is within 2 weeks) coenzyme Q10 100 mg capsule (CoQ-10) 100 mg PO QAM mv-min-vit C 1,000 mg-elderberry 50 mg-herb 35.5mg effervescent tablet (Airborne Elderberry) 1 ea PO DAILY DO NOT take the morning of surgery ergocalciferol (vitamin D2) 1,250 mcg (50,000 unit) capsule (Vitamin D2) 1,250 mcg PO WK multivitamin 1 tab PO QAM sildenafil 100 mg tablet (Viagra) 100 mg PO DAILY PRN Take morning of surgery With a small sip of water, OTHERWISE NOTHING TO EAT OR DRINK AFTER MIDNIGHT: lansoprazole 30 mg capsule,delayed release (Prevacid) 30 mg PO QAM Take evening before surgery pravastatin 40 mg tablet 40 mg PO HS sildenafil 100 mg tablet (Viagra) 100 mg PO DAILY PRN (if needed) acetaminophen 650 mg tablet 1,300 mg PO HS PRN (if needed) aspirin 81 mg tablet 81 mg PO HS (continue as normal unless told otherwise by surgeon) losartan 25 mg tablet 25 mg PO QPM Other Notes If you have any questions please call us at [phone] or [phone] or [phone] or [phone]
--- NOTE | 2021-01-13 12:40 | Anesthesiology Consultation ---
Date of Service January 13, 2021 Assessment & Plan (1) Encounter for pre-operative examination: - COVID screening: Per assessment on 01/13: Travel screen negative, no known COVID-19 positive contacts or current COVID-19 related symptoms. Patient vaccin ated. Surgeon arranging preop COVID testing. Awaiting results. - S/P Right TKA (01/31/20): SAB at L4-L5 x1 attempt + PNB at [facility] Chart Review Chart Review: Acceptable Risk for Surgery and Patient seen in Pre Admission Testing Teaching & Discussion Pre-Anesthesia Teaching/Discussion Notes: Instructed NPO after midnight before surgery,except medications with 15 cc of water. Medication instructions provided according to the PAT guidelines. History Surgery Operation Date: 02/12/21 09:15 Proposed Procedures p Left Total Knee Arthroplasty - Olivier Louis DO Height/Weight Height: 5 ft 11 in Weight: 99.9 kg Allergies Allergy/AdvReac Type Severity Reaction Status Date / Time No Known Allergies Allergy Verified 01/09/21 08:21 Medications Home Medications Medication Instructions Recorded Confirmed Last Taken coenzyme Q10 100 mg capsule 100 mg PO QAM 08/15/19 01/09/21 01/17/20 (CoQ-10) ergocalciferol (vitamin D2) 1,250 1,250 mcg PO WK 08/15/19 01/09/21 01/29/20 08:00 mcg (50,000 unit) capsule (Vitamin D2) ibandronate 150 mg tablet (Boniva) 150 mg PO MONTHLY 08/15/19 01/09/21 01/13/20 lansoprazole 30 mg capsule,delayed 30 mg PO QAM 08/15/19 01/09/21 01/31/20 08:30 release (Prevacid) multivitamin 1 tab PO QAM 08/15/19 01/09/21 01/24/20 pravastatin 40 mg tablet 40 mg PO HS 08/15/19 01/09/21 01/24/20 22:00 sildenafil 100 mg tablet (Viagra) 100 mg PO DAILY PRN 08/15/19 01/09/21 Unknown acetaminophen 650 mg tablet 1,300 mg PO HS PRN 01/09/21 01/09/21 Unknown aspirin 81 mg tablet 81 mg PO HS 01/09/21 01/09/21 Unknown losartan 25 mg tablet 25 mg PO QPM 01/09/21 01/09/21 Unknown mv-min-vit C 1,000 mg-elderberry 1 ea PO DAILY 01/09/21 01/09/21 Unknown 50 mg-herb 35.5mg effervescent tablet (Airborne Elderberry) Past Medical History Medical History GERD (gastroesophageal reflux disease) controlled Hx of migraine with aura stress related/no recent issues Hyperlipidemia Hypertension Osteoarthritis Osteoporosis Exercise / Class Metabolic Activity II 4-5 Yardwork/Stairs/Walk up hill (one FS (no CP, no SOB)) Past Family History Family History Father Family history of esophageal cancer Other No family history of adverse response to anesthesia Past Surgical History Surgical History History of repair of anterior cruciate ligament of left knee History of right knee joint replacement Right TKA (01/31/20): SAB at L4-L5 x1 attempt + PNB at [facility] Hx of arthroscopic knee surgery Left Hx of colonoscopy Hx of repair of right rotator cuff Hx of tonsillectomy Past Anesthesia History No Hx of Anesthesia Complications and No Family Hx of Anesthesia Complications History of PONV No Hx of PONV and No Hx of Motion Sickness Social History Smoking Status: Former smoker tobacco type: cigarettes Do You Dip or Chew Tobacco: No Smoking End Date: Quit 1989 Hx Alcohol Use: Yes alcohol intake frequency: holidays/special occasions only Hx Substance Use: No substance use type: does not use Review of Systems Patient denies chest pain, shortness of breath, dyspnea on exertion, fever, chills, cough, wheezing, palpitations. Physical Exam Vital Signs VITALS BP 123/77 P 59 TEMP 98.0 SP02 95%RA RESP 16 PHYSICAL Full cervical extension range of motion. Full TMJ range of motion. TMD 2.5 finger breaths Mallampati Score 3 Dentition: intact, implant (left upper front/side tooth), sides/molars gold crown Lungs: clear throughout to auscultation Cardiac: regular rate and rhythm, no murmurs noted Spine: normal Carotid arteries: negative bruit Extremities: no edema Lab Results Anesthesia Preop Results Results Anesthesia Widget: WBC 4.32 K/uL (4.8-10.8) L 01/13/21 Hgb 13.5 g/dL (14.0-18.0) L 01/13/21 Hct 40.6 % (42-52) L 01/13/21 Plt 227 K/uL (130-400) 01/13/21 Na 140 mmol/L (136-145) 01/13/21 K 4.0 mmol/L (3.5-5.1) 01/13/21 Cl 109 mmol/L (98-107) H 01/13/21 CO2 25 mmol/L (21-32) 01/13/21 BUN 16 mg/dl (7-18) 01/13/21 Creat 0.97 mg/dl (0.6-1.4) 01/13/21 Glucose Level 88 mg/dl (70-99) 01/13/21 PT 9.9 Seconds (9.0-12.0) 01/13/21 PTT 25.8 Seconds (21.0-31.0) 01/13/21 INR 1.0 (0.9-1.1) 01/13/21 HA1c 5.8 % (4.5-5.6) H 01/13/21 Urine Color Yellow 01/13/21 Urine Appearance Clear (Clear) 01/13/21 Urine pH 5.5 (4.5-7.5) 01/13/21 Urine Specific [place] 1.013 (1.000-1.030) 01/13/21 Urine Protein Negative (Negative) 01/13/21 Urine Glucose (UA) Negative (Negative) 01/13/21 Urine Ketones Negative (Negative) 01/13/21 Urine Blood Negative (Negative) 01/13/21 Urine Nitrite Negative (Negative) 01/13/21 Urine Bilirubin Negative (Negative) 01/13/21 Urine Urobilinogen Negative (Negative) 01/13/21 Urine Leukocyte Esterase Negative (Negative) 01/13/21 Blood Type A Positive 01/13/21 Antibody Screen NEGATIVE 01/13/21 Testing Electrocardiogram Date: 01/13/21 Findings: + SB @ (54) Chest X-Ray Date: 01/13/21 Findings: + NAD
--- NOTE | 2021-01-24 14:18 | History & Physical Report ---
Date of Service January 24, 2021 date of surgery: 02/12/21 Procedure: Left Total Knee Arthroplasty Assessment & Plan (1) Arthritis of knee, left: Plan: Further care discussed with patient and at this point in time has failed conservative measures and would like to proceed with a left total knee replacement. Plan on discharge will be home with home health physical therapy. DVT prophylaxis with TEDs, SCDs and will also place on aspirin 81 mg p.o. b.i.d. for a month postop. Patient will have follow up appointment in our office two weeks post op for staple/suture removal and re-evaluation. Patient otherwise has no other questions or concerns. The risks and benefits have been discussed including, but not limited to, risk of infection, nerve injury, stiffness, loss of motion, failure to improve, etc. Reasonable outcomes and options of treatment were discussed. An explanation of appropriate alternatives to the procedure that may be advantageous were discussed and their risks and benefits, as well as the risks and benefits of not proceeding with treatment. I offered to answer any additional inquiries concerning the treatment involved. All the patient's questions were answered. The patient is agreeable, understanding of the treatment plan and alternatives, and wishes to proceed with the treatment plan. History of Present Illness Chief Complaint: left knee pain Primary Care Provider: Parveen nAgelo MD Mr Mcintyre is a 65 year old male who complains of left knee pain, presents for preop prior to a left total knee replacement at [facility]. He presents with pain, decreased motion and stiffness in his left knee. He states that the symptoms have been chronic non-traumatic and the pain is described as aching and throbbing. He rates his current pain as 5/10. The symptoms are aggravated by daily activities. He had previous cortisone injections without relief, has tried Tylenol, IBU and Aleve without relief. Allergies Allergy/AdvReac Type Severity Reaction Status Date / Time No Known Allergies Allergy Verified 01/09/21 08:21 Home Medications Medication Instructions Recorded Confirmed Type coenzyme Q10 100 mg capsule 100 mg PO QAM 08/15/19 01/09/21 History (CoQ-10) ergocalciferol (vitamin D2) 1,250 1,250 mcg PO WK 08/15/19 01/09/21 History mcg (50,000 unit) capsule (Vitamin D2) ibandronate 150 mg tablet (Boniva) 150 mg PO MONTHLY 08/15/19 01/09/21 History lansoprazole 30 mg capsule,delayed 30 mg PO QAM 08/15/19 01/09/21 History release (Prevacid) multivitamin 1 tab PO QAM 08/15/19 01/09/21 History pravastatin 40 mg tablet 40 mg PO HS 08/15/19 01/09/21 History sildenafil 100 mg tablet (Viagra) 100 mg PO DAILY PRN 08/15/19 01/09/21 History acetaminophen 650 mg tablet 1,300 mg PO HS PRN 01/09/21 01/09/21 History aspirin 81 mg tablet 81 mg PO HS 01/09/21 01/09/21 History losartan 25 mg tablet 25 mg PO QPM 01/09/21 01/09/21 History mv-min-vit C 1,000 mg-elderberry 1 ea PO DAILY 01/09/21 01/09/21 History 50 mg-herb 35.5mg effervescent tablet (Airborne Elderberry) Past Med/Surg History Medical History GERD (gastroesophageal reflux disease) controlled Hx of migraine with aura stress related/no recent issues Hyperlipidemia Hypertension Osteoarthritis Osteoporosis Surgical History History of repair of anterior cruciate ligament of left knee History of right knee joint replacement Right TKA (01/31/20): SAB at L4-L5 x1 attempt + PNB at [facility] Hx of arthroscopic knee surgery Left Hx of colonoscopy Hx of repair of right rotator cuff Hx of tonsillectomy Family History Father Family history of esophageal cancer Other No family history of adverse response to anesthesia Social History Smoking Status: Former smoker Smoking End Date: Quit 1989; Second Hand Exposure: No; Do You Dip or Chew Tobacco: No; Tobacco Cessation Education Requested by Patient: No Hx Alcohol Use: No Hx Substance Use: No Preferred Language: [place] Communication Ability: Effective Business Banking Relationship Manager Required: No Beliefs That Will Affect Care: None Current Living Situation: Spouse Other Information That Helps Us Care for You: No Feels Safe at Home: Yes Safety Concerns: Feels Safe At This Time Assistive Devices: Glasses Review of Systems Review of Systems: All systems reviewed & are unremarkable except as noted in HPI & below Constitutional: no fever, no chills and no sweats Respiratory: no cough and no dyspnea Cardiovascular: no chest pain, no dyspnea and no orthopnea Gastrointestinal: no abdominal pain, no nausea and no vomiting Musculoskeletal: as per Subjective / HPI Physical Exam Physical Exam: HT: 5ft 11in WT: 99.9kg Constitutional: WD/WN, vitals as above no acute distress Respiratory: normal respiratory effort, lungs clear to auscultation no respiratory distress, no labored breathing and does not use accessory muscles Cardiovascular: RRR, no murmur, no edema Gastrointestinal (Abdomen): normal bowel sounds, soft, nontender, no hepatosplenomegaly Musculoskeletal: Knee: + knee abnormal to inspection (LEFT KNEE), + effusion (+1 effusion), + limited ROM of knee (ROM 0/3/110), + knee ROM with crepitation, + joint line tenderness (medial joint line) and + Melissa's sign positive; no deformity, no skin erythema, no ecchymosis, no valgus laxity, no varus laxity, anterior drawer test negative, Kiera's sign negative and pivot shift test negative Results & Data Results & Data ([facility]) Diagnostic Findings Left Knee X-ray: left knee series confirm advanced degenerative changes to the left knee, greatest medial compartments and patellofemoral joint, showing joint space narrowing, osteophyte formation and subchondral sclerosis. no acute bony pathology noted.
[~2021-02-12 06:07] MED LIST changes: -CEFAZOLIN 2000MG 2,000 MG/15 ML SYR IV SCH; -ROPIVACAINE 0.5% HCL/PF 150 MG, BUPIVACAINE 0.5% MPF 30 ML, EPINEPHrine 30MG/30ML (OR U... INSTIL SCH; +ROPIVACAINE 0.5% HCL/PF 150 MG, BUPIVACAINE 0.75% MPF 20 ML, EPINEPHrine 30MG/30ML (OR ... INSTIL SCH; +ceFAZolin 2000MG 2,000 MG/15 ML SYR IV SCH; -dexAMETHasone 4 MG TAB PO SCH; +oxyCODONE HCL 10 MG TABCR (OxyCONTIN) PO SCH
[2021-02-12] MEDS ORDERED: MEPIVACAINE HCL 1.5% 30 ML VIAL ONE (06:48)
[2021-02-12] MEDS ORDERED: ROPIVACAINE 0.5% 5 MG/ML 30 ML VIAL ONE (06:48)
[2021-02-12] MEDS ORDERED: EPINEPHrine INJ 1 MG/ML AMP ONE (06:48)
[2021-02-12] MEDS ORDERED: SODIUM CHLORIDE 0.9% INJ 10 ML VIAL ONE (06:48)
--- NOTE | 2021-02-12 07:27 | History & Physical Bridge Note ---
Date of Service February 12, 2021 History & Physical Bridge Note I have examined the patient, reviewed the History & Physical and in the interval since the performance of the History & Physical I have noted the following changes of clinical significance: no changes noted
[2021-02-12] MEDS ORDERED: HYDROmorphone INJ 1 MG/ML SYRINGE IV PRN ×3 (07:31→18:21)
[2021-02-12] MEDS ORDERED: ePHEDrine sulfate 50 MG/ML AMP IV PRN (07:31)
[2021-02-12] MEDS ORDERED: PHENYLEPHRINE 100MCG/ML 5ML SYR IV PRN (07:31)
[2021-02-12] MEDS ORDERED: ATROPINE SULFATE 0.1 MG/ML 10ML SYR IV PRN (07:31)
[2021-02-12] MEDS ORDERED: LABETALOL HCL IV 5 MG/ML 20ML IV PRN (07:31)
[2021-02-12] MEDS ORDERED: fentaNYL citrate 100 MCG/2 ML VIAL IV PRN (07:31)
[2021-02-12] MEDS ORDERED: ONDANSETRON INJ 2 MG/ML 2 ML VIAL IV PRN ×3 (07:31→18:21)
[2021-02-12] MEDS ORDERED: MEPERIDINE HCL 25 MG/ML CARP/VIAL IV PRN (07:31)
[2021-02-12] MEDS ORDERED: PROPOFOL IV EMULSION 10 MG/ML 20 ML VIAL IV ONE ×2 (07:52→10:15)
[2021-02-12] MEDS ORDERED: fentaNYL citrate 100 MCG/2 ML VIAL ONE (07:52)
[2021-02-12] MEDS ORDERED: LIDOCAINE 2% 2 ML VIAL/AMP(20MG/ML) INFIL ONE (07:52)
[2021-02-12] MEDS ORDERED: MIDAZOLAM HCL 1 MG/ML 2ML VIAL ONE (07:52)
[2021-02-12] MEDS ORDERED: ORTHO JOINT ANESTHETIC ONE (09:18)
[2021-02-12] MEDS ORDERED: KETAMINE 50 MG/5 ML SYRINGE ONE (10:04)
--- NOTE | 2021-02-12 11:07 | Operative Report ---
Post Operative Report Pre & Post Diagnosis Operation Date: 02/12/21 08:55 Pre-Op Diagnosis: Left Knee Advanced Degenerative Joint Disease Post-Op Diagnosis: Left Knee Advanced Degenerative Joint Disease I identified the patient and participated in the time-out.: Yes Procedure Operation Date: 02/12/21 08:55 Actual Procedures p Left Total Knee Arthroplasty(Left) utilizing [employer] 2 long block total knee arthroplasty size femur 7 tibia 6 polynine patella 32 neha- Olivier Louis DO Surgeon Olivier Louis DO Chair Car Driver Milton VAZQUEZ Estimated Blood Loss 5 Findings Consistent with Post-Op Diagnosis Patient presents severe end-stage DJD flexion contracture 7 degrees varus alignment skin large eburnated bone with large medial and lateral osteophytes subchondral cystic changes moderate to large effusion eburnated bone the bone Specimens Bone and cartilage Drains Medium bore Hemovac Anesthesia Type MAC Spinal Regional Complications none Disposition Accompanied Patient To Recovery: No Disposition: Recovery Room Indications Patient presents with severe end-stage tricompartmental degenerative joint disease failed attempted conservative management clinic physical therapy anti- inflammatories relative rest activity modification corticosteroid injection viscosupplementation above intraoperative findings were noted Description of Procedure After proper prepping and draping of the left lower extremity anterior midline incision was made over the region of the extensor extensor mechanism after meticulous hemostasis was obtained and maintained in subcutaneous tissues a medial parapatellar incision was made The patella was subluxed lateralward the medial lateral gutter were cleaned from any hypertrophic synovitis and scar tissue of the distal femoral block was placed and the distal femoral osteotomy cut was made subsequently the chamfers anterior and posterior osteotomy cuts were made utilizing the 4-in-1 block the tibia was subsequently subluxed anteriorward medial and ateral meniscal remnants were excised in their entirety remnants of the anterior and posterior cruciate ligaments were excised in their entirety excellent exposure of the proximal tibia was obtained the tibial osteotomy guide was placed on the proximal tibial osteotomy cut was made once again the knee was irrigated with copious amounts of sterile saline solution the patella was subsequently everted lateralward thickened scar tissue around the patella was removed the patella was subsequently cut utilizing a freehand technique and was drilled prepared for final preparation and placement of patella socially flexion-extension gaps were checked and the equal and symmetric trials were placed to the appropriate femoral and tibial trials with poly-spacer being placed for equal flexion and extension gaps and full range of motion including extension to 0 and flexion to 140 the trial components after having been taken to recovery range of motion was subsequently removed meticulous hemostasis was obtained and maintained subsequently a knee block injection of joint cocktail including ropivacaine 0.5% 150 mg. Bupivacaine 0.5% epinephrine 1-200,030 mL's toradol 30 mg dexamethasone 4 mg ketamine 10 mg clonidine 100 micrograms normal saline solution 30 mg was infiltrated into the soft tissues of the posterior knee medial lateral gutters and periosteal synovium special attention was paid to protect neurovascular structures at all times subsequently trial components having been removed the knee was irrigated with sterile saline solution. debris was removed the proximal tibia was subsequently prepared and was made ready for the placement of the tibial component tibial component was also cemented and tamped into position the femoral component was subsequently placed and cemented in the position the patellar component was subsequently cemented in position because hemostasis once again obtained and maintained wound having been thoroughly irrigated with debridement and debridement lavage was performed as well as a medial parapatellar incision closed with #1 Vicryl in interrupted fashion subcutaneous was closed with #2 Vicryl skin was closed with skin clips. PA-C was necessary for prepping and drapping as well as wound closure of deep fascia Sub cutaneous tissue and skin and was necessary for the case. A sterile compressive dressing was placed patient was taken to recovery in stable condition of report dictated by Heriberto I attest to the content of the Intraoperative Record and any orders documented therein. Any exceptions are noted below. I attest to the content of the Intraoperative Record and any orders documented therein. Any exceptions are noted below.
[2021-02-12] MEDS ORDERED: oxyCODONE HCL IR 5 MG TAB (IMMEDIATE RELEASE) PO PRN (11:46)
[2021-02-12] MEDS ORDERED: NALOXONE HCL 0.4 MG/1 ML VIAL/CARP IV PRN ×2 (11:46→18:21)
--- NOTE | 2021-02-12 12:13 | Anesthesiology Progress Note ---
Date of Service February 12, 2021 Anesthesia Post Procedure Vital Signs Vital Signs: Temp Pulse Pulse Resp BP Pulse Ox 02/12/21 12:05 62 18 123/71 98 02/12/21 11:55 57 L 13 115/67 97 02/12/21 11:46 36.6 C 62 14 123/63 94 02/12/21 07:55 36.4 C L 57 L 18 116/98 96 02/12/21 07:00 36.7 C 61 20 137/83 95 Transfer of Care Handoff Completed per policy Notes Mental Status: alert / awake / arousable Patient Amnestic to Procedure: Yes Nausea / Vomiting: adequately controlled Pain: adequately controlled Airway Patency, RR, SpO2: stable & adequate BP & HR: stable & adequate Hydration State: stable & adequate Neuraxial Anesthesia: was administered and sensory block is resolving Anesthetic Complications: no major complications apparent and Pt Satisfied with anesthetic care
--- NOTE | 2021-02-12 12:16 | XRay Report ---
XR knee LT 1 or 2V routine CLINICAL HISTORY: Postoperative evaluation. COMPARISON: None FINDINGS: Alignment of the total left knee arthroplasty is anatomic. No periprosthetic fracture or u nexpected radiopaque foreign body. Surgical drains are in place. IMPRESSION: Expected findings following total left knee arthroplasty. ACT 112: Negative or not required by law. Electronically signed by: Thang Rose M.D. 02/12/2021 12:15 PM
--- NOTE | 2021-02-12 15:13 | Communication Note ---
Date of Service: February 12, 2021 The patient has numbness in the operative foot from the block. Dr. Go and Dr. Narvaez are aware and will evaluate the patient if he is suitable for discharge today.
--- NOTE | 2021-02-12 17:10 | Communication Note ---
Date of Service: February 12, 2021 Decision was made to admit the patient as he had residual local anesthetic effects that prevented effective physical therapy allowing him to go home.
[2021-02-12] MEDS ORDERED: MAGNESIUM HYDROXIDE SUSP 30 ML UDC PO PRN (18:21)
[2021-02-12] MEDS ORDERED: bisacodyL 10 MG SUPP PR PRN (18:21)
[2021-02-12] MEDS ORDERED: diphenhydrAMINE Capsule 25 MG CAP PO PRN (18:21)
[2021-02-12] MEDS ORDERED: METOCLOPRAMIDE HCL INJ 5 MG/ML 2 ML VIAL IV PRN (18:21)
[2021-02-12] MEDS: SODIUM CHLORIDE 0.9% 1000ML 1,000 ML IV SCH ×3 (18:25→21:10)
[2021-02-12] MEDS: ACETAMINOPHEN 500 MG TAB PO SCH ×3 (18:30→21:13)
[2021-02-12] MEDS: KETOROLAC TROMETHAMINE 15 MG/ML VIAL IV SCH (18:47)
[2021-02-12] MEDS: oxyCODONE HCL IR 5 MG TAB (IMMEDIATE RELEASE) PO PRN ×2 (19:44→23:39)
[2021-02-12] MEDS: ceFAZolin 2000MG 2,000 MG/15 ML SYR IV SCH (19:44)
[2021-02-12] MEDS ORDERED: SENNA 8.6 MG TAB PO SCH (21:00)
[2021-02-12] MEDS ORDERED: PRAVASTATIN SOD 40 MG TAB PO SCH (21:00)
[2021-02-12] MEDS ORDERED: LOSARTAN POTASSIUM 25 MG TAB PO SCH (21:00)
[2021-02-12] MEDS: ASPIRIN 81 MG ECTAB PO SCH (21:10)
[2021-02-12] MEDS: DOCUSATE SODIUM 100 MG CAP PO SCH (21:11)
[2021-02-13] MEDS: KETOROLAC TROMETHAMINE 15 MG/ML VIAL IV SCH ×3 (00:02→13:12)
[2021-02-13] MEDS: ACETAMINOPHEN 500 MG TAB PO SCH ×4 (00:37→14:20)
[2021-02-13] MEDS: ceFAZolin 2000MG 2,000 MG/15 ML SYR IV SCH (03:24)
[2021-02-13] MEDS: SODIUM CHLORIDE 0.9% 1000ML 1,000 ML IV SCH (03:25)
--- NOTE | 2021-02-13 07:36 | Orthopedic Progress Note ---
Date of Service February 13, 2021 Assessment & Plan (1) History of total left knee replacement: Plan: POD #1 s/p left TKA pt/ot dvt proph with HUGO/SCD/ASA plan for d/c home with HHPT mild foot drop, will cont to observe, likely secondary to intraop injection. Admission and Anticipated Discharge Date Admission Date: February 12, 2021 Subjective POD #1 s/p Left TKA Review of Systems Constitutional: no fever, no chills and no sweats Respiratory: no cough and no dyspnea Cardiovascular: no chest pain and no dyspnea Gastrointestinal: no abdominal pain, no nausea and no vomiting Physical Exam Physical Exam: Vital Signs Temp Pulse Pulse Pulse Resp BP Pulse Ox 02/13/21 03:21 36.6 C 65 16 93/54 L 93 02/13/21 01:24 81 16 133/75 97 02/12/21 23:23 36.4 C L 71 17 120/65 93 02/12/21 20:51 72 20 130/76 96 02/12/21 16:55 68 20 126/82 94 02/12/21 15:55 67 18 121/80 95 02/12/21 15:45 36.5 C 68 18 144/84 H 94 02/12/21 15:05 63 18 114/69 96 02/12/21 14:05 55 L 18 140/92 94 02/12/21 13:29 67 16 125/81 91 02/12/21 12:55 65 18 138/80 93 02/12/21 12:25 36.4 C L 56 L 16 123/82 93 02/12/21 12:15 36.5 C 56 L 18 121/72 94 02/12/21 12:05 62 18 123/71 98 02/12/21 11:55 57 L 13 115/67 97 02/12/21 11:46 36.6 C 62 14 123/63 94 02/12/21 07:55 36.4 C L 57 L 18 116/98 96 Intake and Output 02/12/21 02/13/21 02/13/21 22:59 06:59 14:59 Intake Total 880 / 5005 1999 / 5004 Output Total 305 / 2035 1550 / 2035 Balance 575 / 2970 450 / 2970 Intake: IV 100 / 2200 1999 Sodium Chlorid e 0.9% 1000ML 1999 000 ml @ 100 m ls/hr IV .Q10H [facility] Rx#:[id number] Tranexamic Aci d / 0.7% NaCl 1, 100 / 100 000 mg In 100 ml @ 600 mls/hr IV TODAY@0600 [facility] Rx#:[id number] IV Perioperative 300 / 2100 Oral 480 / 705 Output: Urine 300 / 1650 1350 / 1650 Drain Output 5 / 230 200 / 230 Left Knee 5 / 230 200 / 230 Other: Weight 104.326 kg Constitutional: WD/WN, vitals as above Musculoskeletal: left Leg: NVDI, calf SNT, negative lisa sign. DP palpable, dressing clean dry and intact. weak dorsiflexion Results & Data ([facility]) Vital Signs (Past 12 Hours) Vital Signs Temp Pulse Pulse Resp BP Pulse Ox 02/13/21 03:21 36.6 C 65 16 93/54 L 93 02/13/21 01:24 81 16 133/75 97 02/12/21 23:23 36.4 C L 71 17 120/65 93 02/12/21 20:51 72 20 130/76 96 Diagnostic Findings Impressions Knee X-Ray 02/12/21 11:48 XR knee LT 1 or 2V routine CLINICAL HISTORY: Postoperative evaluation. COMPARISON: None FINDINGS: Alignment of the total left knee arthroplasty is anatomic. No periprosthetic fracture or unexpected radiopaque foreign body. Surgical drains are in place. IMPRESSION: Expected findings following total left knee arthroplasty. ACT 112: Negative or not required by law. Electronically signed by: Thang Rose M.D. 02/12/2021 12:15 PM
[2021-02-13 08:12] LABS: Hemoglobin 11.1 g/dL (14.0-18.0); Mean Corpuscular Hemoglobin 30.4 pg (25-34); Mean Corpuscular Hgb Conc 32.6 g/dL (32-36); Mean Corpuscular Volume 93.2 fL (80-100); Mean Platelet Volume 10.2 fL (7.4-10.4); Platelet Count 193 K/uL (130-400); RDW Coefficient of Variation 14.3 % (11.5-14.5); RDW Standard Deviation 48.7 fL (36.4-46.3); Red Blood Count 3.65 M/uL (4.7-6.1)
[2021-02-13 08:45] LABS: BUN Creatinine Ratio 16.3 (10-20); Calcium 8.4 mg/dl (8.5-10.1); Creatinine Clr Calc Pharmacy 87.4 ml/min; Est GFR (African American) 86.5 ml/min; Est GFR (Non-African American) 74.7 ml/min; Potassium 4.3 mmol/L (3.5-5.1)
[2021-02-13] MEDS: oxyCODONE HCL IR 5 MG TAB (IMMEDIATE RELEASE) PO PRN ×2 (08:50→13:10)
[2021-02-13] MEDS: DOCUSATE SODIUM 100 MG CAP PO SCH (08:52)
[2021-02-13] MEDS: ASPIRIN 81 MG ECTAB PO SCH (08:52)
[2021-02-13] MEDS ORDERED: MULTIVITAMIN TAB PO SCH (09:00)
--- NOTE | 2021-02-13 14:09 | Discharge Summary ---
Date of Service date of discharge: February 13, 2021 date of admission: 02-12-21 Admission HPI Per Admitting Provider Mr Mcintyre is a 65 year old male who complains of left knee pain, presents for preop prior to a left total knee replacement at [facility]. He presents with pain, decreased motion and stiffness in his left knee. He states that the symptoms have been chronic non-traumatic and the pain is described as aching and throbbing. He rates his current pain as 5/10. The symptoms are aggravated by daily activities. He had previous cortisone injections without relief, has tried Tylenol, IBU and Aleve without relief. Principal Diagnosis left knee pain Discharge Exam Vital Signs Temp Pulse Pulse Resp BP BP Pulse Ox 02/13/21 12:00 36.5 C 60 18 122/70 96 02/13/21 07:50 36.5 C 72 18 114/67 95 02/13/21 03:21 36.6 C 65 16 93/54 L 93 02/13/21 01:24 81 16 133/75 97 02/12/21 23:23 36.4 C L 71 17 120/65 93 02/12/21 20:51 72 20 130/76 96 02/12/21 16:55 68 20 126/82 94 02/12/21 15:55 67 18 121/80 95 02/12/21 15:45 36.5 C 68 18 144/84 H 94 02/12/21 15:05 63 18 114/69 96 Intake and Output 02/12/21 02/13/21 02/13/21 22:59 06:59 14:59 Intake Total 880 / 5005 2000 / 5005 Output Total 305 / 2035 1550 / 2035 550 / 550 Balance 575 / 2970 450 / 2970 -550 / -550 Intake: IV 100 / 2200 2000 / 2200 Sodium Chloride 0.9% 1000ML 1, 2000 / 2000 000 ml @ 100 mls/hr IV .Q10H [facility] Rx#:[id number] Tranexamic Acid / 0.7% NaCl 1, 100 / 100 000 mg In 100 ml @ 600 mls/hr IV TODAY@0600 [facility] Rx#:[id number] IV Perioperative 300 / 2100 Oral 480 / 705 Output: Urine 300 / 1650 1350 / 1650 300 / 300 Drain Output 5 / 230 200 / 230 250 / 250 Left Knee 5 / 230 200 / 230 250 / 250 Other: Weight 104.326 kg 104.326 kg Patient Weight 02/14/21 06:59 Weight 104.326 kg Musculoskeletal left knee: NVDI, calf SNT, negative lisa sign. DP palpable, able to wiggle toes/ankle movement without difficulty. dressing clean dry and intact. Discharge Data Allergies Allergy/AdvReac Type Severity Reaction Status Date / Time No Known Allergies Allergy Verified 02/12/21 06:56 Procedures Performed Operation Date: 02/12/21 08:55 Actual Procedures p Left Total Knee Arthroplasty(Left) - Olivier Louis DO Ordered Studies 02/12/21 05:00 US - OR guided needle placemen Routine Hospital Course (1) History of total left knee replacement: POD #1 s/p left TKA pt/ot dvt proph with HUGO/SCD/ASA plan for d/c home with HHPT mild foot drop, will cont to observe, likely secondary to intraop injection. Total Time Total Time Spent Total Time Spent (In Minutes): 20 Discharge Plan Discharge Items Patient Disposition: Home - Home Health Services Reason For Visit: Osteoarthritis Left Knee Discharge Diagnosis: left total knee replacement Activity: Per Instructions section Lifting: Wait until after follow-up appointment Weightbearing Comment: WBAT with walker Non-emergency contact: Surgeon Call non-emergency contact if: you have any medication questions, your temperature is above 101, your wound has increased redness, your wound has increased drainage and your wound pain has increased Follow-up/Referrals: [facility] [Outside] (Per surgeon's office) Olivier Louis DO [Surgeon] - Parveen Angelo MD [Primary Care Provider] - Diet: Regular Addtl Attending Provider Instructions: ACTIVITY RECOMMENDATIONS: SELF CARE INSTRUCTIONS AFTER TOTAL KNEE REPLACEMENT A. You may need to continue a physical therapy program after discharge from the hospital. There are several options available to you. Your doctor will assist you in selecting the best one for you. 1. An out-patient facility 2 to 3 times a week for therapy or home therapy. 2. Continue working on all exercises taught to you in the hospital. Your goals should be to increase bending of your knee to 90 degrees and beyond and to fully straighten your knee. B. You may progress at your own pace from walking with a walker or crutches to a cane; then to no assistive devices. C. Make walking a part of your daily routine. Be up as much as comfortable with rest periods throughout the day. Rest with leg elevation is very important. Use the ice wrap frequently for the first 3-4 weeks. D. There are no restrictions on activities. You may ride in a car, shop, participate in chief learning officer and all social activities. E. Wear the long elastic stockings (HUGO hose) 20 hours a day for 2 weeks after surgery. They can be removed several times a day for laundering and for a bath. F. You may shower, no tub baths until cleared by your doctor. SPECIAL CARE INSTRUCTIONS: VERY IMPORTANT TO READ AND REVIEW A. There are a few signs you need to watch for after you are home. Call [facility] [place] if you notice any of the followin. Increased severe knee pain. Some pain is expected especially when you exercise. 2. Increased swelling in your leg or knee; pain or swelling of the calf muscle in either lower leg. 3. Any fluid drainage from the incision. 4. Shortness of breath or chest pain. B. Please call [facility] at if you have any concerns or questions about your operation or recovery. The doctor or his nurse will return your call promptly. C. You must take antibiotics before dental work, bladder, bowel or other surgery. Your doctor will provide you with a permanent care to carry describing this precaution. IMPORTANT: * REMEMBER TO TAKE ASPIRIN, 81 MG, TWICE DAILY FOR 4 WEEKS UNLESS OTHERWISE DIRECTED. THIS IS YOUR BLOOD THINNER. * HIGH RISK PATIENTS MAY BE PRESCRIBED A STRONGER BLOOD THINNER. THIS WILL BE PROVIDED AT DISCHARGE. * CALL IF INCREASED PAIN, REDNESS, DRAINAGE OR FEVER GREATER THAT 101. * WEAR HUGO HOSE 20 HOURS PER DAY FOR 2 WEEKS. * HIREN Dressing- This is a large suction dressing covering your incision. This will help pull any excess drainage from the wound and allow your incision to heal properly. You may shower with this if you can keep the unit outside of the shower. If any bleeding or leakage is noted please call your doctor's office. This will remain on your incision for 7 days and then should be removed. This can be done yourself or by the home nursing staff if applicable. The entire unit is disposable once removed. Once removed, keep incision clean and dry. If redness or drainage is noted, please call your surgeon. ONCE REMOVED, FOLLOW THESE INSTRUCTIONS: DERMABOND Prineo- This is a mesh tape dressing that is covered with glue. It should remain in place until the incision is properly healed, usually 10-14 days. This dressing is designed to naturally slough off. You may trim the excess mesh tape as it peels off. Incision may be briefly wet in a shower. Dry immediately by blotting with a clean, dry towel. Do not bath or swim until instructed by your doctor. Do not scratch, rub, or pick at the dressing. Do not apply any topical ointments or lotions until dressing is completely removed and/or instructed by your doctor. There may be a small piece of suture material at one end of your incision. Do not pull or trim this. If it is bothersome or catching on clothing, you may cover it with a band-aid. IF INCISION IS LEAKING THROUGH DRESSING, CALL THE OFFICE . FOLLOW UP VISIT: If appointment is not already scheduled: Please call [facility] [place] to make a follow-up appointment for 2 weeks after your surgery at . Pending Studies at Discharge: No Stand-Alone Forms: Anesthesia/Sedation, Adult, [facility], Opioid Pain Management Medications and DC Order Prescriptions: New acetaminophen [Tylenol Extra Strength] 500 mg Tablet 1,000 mg PO Q8 21 Days Qty: 126 RF: 0 oxycodone 5 mg Tablet 5 - 10 mg PO Q6H PRN (Reason: pain) Qty: 30 RF: 0 aspirin 81 mg tablet,delayed release (DR/EC) 81 mg PO BID 30 Days Qty: 60 RF: 0 celecoxib [Celebrex] 200 mg capsule 200 mg PO BID 30 Days Qty: 60 RF: 0 ondansetron HCl [Zofran] 4 mg tablet 8 mg PO Q8H PRN (Reason: nausea and vomiting) Qty: 20 RF: 0 cefadroxil 500 mg capsule 500 mg PO BID 14 Days Qty: 28 RF: 0 Continued multivitamin Tablet 1 tab PO QAM RF: 0 pravastatin 40 mg Tablet 40 mg PO HS RF: 0 sildenafil [Viagra] 100 mg Tablet 100 mg PO DAILY PRN (Reason: Erectile Dysfunction) RF: 0 lansoprazole [Prevacid] 30 mg Capsule,Delayed Release(Dr/Ec) 30 mg PO QAM RF: 0 ergocalciferol (vitamin D2) [Vitamin D2] 1,250 mcg (50,000 unit) Capsule 1,250 mcg PO WK RF: 0 ibandronate [Boniva] 150 mg Tablet 150 mg PO MONTHLY RF: 0 losartan 25 mg Tablet 25 mg PO QPM RF: 0 Discontinued coenzyme Q10 [CoQ-10] 100 mg Capsule 100 mg PO QAM RF: 0 acetaminophen 650 mg Tablet 1,300 mg PO HS PRN (Reason: Pain) RF: 0 aspirin 81 mg Tablet 81 mg PO HS RF: 0 Airborne Elderberry 1,000 mg-50 mg-35.5 mg Tablet, Effervescent 1 ea PO DAILY RF: 0 Discharge Orders: Discharge Order (Routine); Ordered 02/13/21 Ordered By: Milton Rojo/Other Patient Handouts: DVT Post Op Prevention Admission Data Admit Date/Time: 02/12/21 17:05 Attending Provider: Olivier Louis Admit Provider: Olivier Louis Primary Care Provider: Parveen Angelo. Other Interventions: Discharge Summary Assessment (RN) Last Done: 02/13/21 11:41
[2021-02-13] MEDS ORDERED: CeleBREX 200 MG CAP PO SCH (21:00)
[2021-02-17] MEDS ORDERED: ERGOCALCIFEROL 50,000 UNITS 1250 MCG CAP PO SCH (09:00)
== END 2021-02-13 14:53 | disposition home health service (06) ==
LOC: ASU 06:07 → 3E 06:07